=== PATIENT | female | born 2000 | race Caucasian/White ===

== ENCOUNTER 2020-08-26 13:22 | Emergency (ER) | payer OTHER, SELFPAY ==
--- NOTE | 2020-08-26 13:27 | ED.UPPEXIN ---
HPI - Extremity Injury (Upper) General Chief Complaint: Wound/Laceration Stated Complaint: CUT THUMB ON LEFT HAND AT WORK Time Seen by Provider: 08/26/20 13:25 Source: patient Mode of arrival: Ambulatory Limitations: no limitations History of Present Illness HPI narrative: 19-year-old female nonsmoker with noncontributory medical history presents with a work related injury to her left thumb. She was using a knife and chopping vegetables when it slipped and caused a laceration, she states that there is tissue loss and it is bleeding heavily. She has not had a tetanus shot in over 5 years. She denies numbness, tingling or weakness. She is otherwise well and free of complaint MD complaint: injury to: left Onset (ago): minute(s) Other Extremity Injury: Left: fingers Other injuries: none Handedness: right Place: work Severity: mild Relieving factors: none Exacerbating factors: none Context: laceration Associated symptoms: denies other symptoms Treatments prior to arrival: bandage Related Data Allergies Allergy/AdvReac Type Severity Reaction Status Date / Time No Known Drug Allergies Allergy Verified 08/26/20 13:28 Review of Systems Constitutional Constitutional: Denies chills, Denies fatigue, Denies fever(s), Denies frequent falls, Denies lethargy and Denies weakness Eyes Eyes: Denies change in vision, Denies eye discharge, Denies irritation and Denies loss of vision ENT Ears, Nose, Mouth, and Throat: Denies change in voice, Denies dizziness, Denies neck pain, Denies sore throat and Denies throat swelling Cardiovascular Cardiovascular: Denies chest pain, Denies irregular heart rhythm, Denies lightheadedness, Denies palpitations, Denies dyspnea, Denies dyspnea on exertion and Denies orthopnea Respiratory Respiratory: Denies cough, Denies dyspnea, Denies dyspnea on exertion and Denies wheezing Gastrointestinal Gastrointestinal: Denies abdominal pain, Denies change in bowel habits, Denies diarrhea, Denies nausea and Denies vomiting Musculoskeletal Musculoskeletal: Denies neck pain and Denies numbness Integumentary/Breasts Skin/Breast: Denies pruritus, Denies erythema, Denies rash and Reports wounds Neurologic Neurologic: Denies behavioral changes, Denies confusion, Denies dizziness, Denies frequent falls, Denies loss of vision, Denies numbness and Denies weakness Psychiatric Psychiatric: Denies anxiety, Denies behavioral changes, Denies confusion, Denies depression, Denies homicidal ideation and Denies suicidal ideation Endocrine Endocrine: Denies fatigue, Denies flushing and Denies palpitations Hematologic/Lymphatic Hematologic/Lymphatic: Denies easy bruising Allergic/Immunologic Allergic/Immunologic: Denies urticaria, Denies throat swelling and Denies wheezing Patient History Social History Smoking Status: Current every day smoker alcohol intake frequency: 0-2 drinks per day Substance Use Type: does not use Exam Narrative Exam Narrative: GEN: AOx3 and in mild distress EYES: Pupils are equal, round, and reactive to light and accommodation. Extraoccular muscles are intact bilaterally. There is no subconjunctival hemorrhage or exudate. CHEST: Lungs are clear to auscultation bilaterally and free of wheezes, rales, or rhonchi. Heart rate is regular rhythm, there are no murmurs, clicks, rubs, or gallops. There is no chest wall tenderness. ABD: Abdomen is soft and nontender. There is no guarding or rebound. Bowel sounds are normal in all 4 quadrants. There is no mass or organomegaly. EXT: Avulsion laceration to the tip of the left thumb with a small amount of nailbed involvement and loss of nail, heavy bleeding noted Full painless ROM of all extremities with no loss of sensation or strength. SKIN: Warm, pink, and dry. No erythema or rash Initial Vital Signs Initial Vital Signs: Vital Signs Temperature 97.5 F L 08/26/20 13:28 Pulse Rate 116 H 08/26/20 13:28 Respiratory Rate 14 08/26/20 13:28 Blood Pressure 142/84 H 08/26/20 13:28 Pulse Oximetry 98 08/26/20 13:28 Procedures Laceration Repair Laceration 1: Site: upper extremity Side (If applicable): left Size (cm): 1.0 Description: clean Depth: simple, single layer Local Anesthetic: lidocaine 1% and bupivacaine 0.5% Pre-repair: wound explored Skin layer closed with: nylon Size (cm): 4-0 Number of sutures: 1 Technique: simple, interrupted Course Orders Ordered: Discontinued Medications Diphtheria/Tetanus/Acell Pertussis (Tet,Diph,Pertuss(Acell),Vac/Pf 0.5 Ml Syringe) 0.5 ml IM .ONCE ONE Stop: 08/26/20 13:28 Last Admin: 08/26/20 13:36 Dose: 0.5 ml Documented by: QUINN Lidocaine/Sodium Bicarbonate (Lido 1%/Sod Bicarb 8.4% (10ml) 10 Ml Syringe) 10 ml INJ NOW ONE Stop: 08/26/20 13:28 Last Admin: 08/26/20 13:35 Dose: 10 ml Documented by: QUINN Vital Signs Vital signs: Vital Signs - 8 hr 08/26/20 13:28 Temperature 97.5 F L Pulse Rate 116 H Respiratory Rate 14 Blood Pressure 142/84 H Pulse Oximetry 98 Discharge Plan Departure Patient Disposition: Home Clinical Impression: Laceration Instructions: DI for Laceration Repair Activity Restrictions/Additional Instructions: *You have been diagnosed with [left thumb laceration with avulsion] *What to do: *Please continue to take your regular medications as directed. [ ] New medication prescriptions sent to your pharmacy: [ ] [ ] New medication written as a paper prescription [ x] No new medications given Please keep the wound clean and dry to the best of your ability. Please monitor for signs of infection such as redness to the skin or increasing pain. Have the sutures removed by your doctor in about 7 days. If you are unable to get into your doctor, we would be happy to remove the sutures in that same timeframe. *If you do not have a primary care provider please contact the [facility] Resource line at [phone]. They will ask some questions about your medical history and help get you set up with a doctor in the community. *Return to Emergency Department if you should have any new, worsening or concerning symptoms, such as [fever greater than 101 F, shaking chills, worsening pain, persistent vomiting or other bothersome symptoms] Referrals: Danilo Gamez MD [Primary Care Provider] -
[2020-08-26 13:28] VITALS: BP 142/84; PULSE 116; RESP 14; TEMP 36.4; O2SAT 98; BMI 18.8
[2020-08-26] MEDS: LIDO 1%/SOD BICARB 8.4% (10ML) 10 ML SYRINGE INJ (13:35)
[2020-08-26] MEDS: TET,DIPH,PERTUSS(ACELL),VAC/PF 0.5 ML SYRINGE IM (13:36)
== END 2020-08-26 14:12 | disposition home or self-care (01) ==
PROVIDERS: Emergency Provider Emergency Medicine; PCP Family Medicine
DX: S61.012A Laceration without foreign body of left thumb without damage to nail, initial encounter (principal); W26.0XXA Contact with knife, initial encounter; Z23 Encounter for immunization; Y99.0 Civilian activity done for income or pay
CPT/HCPCS: 12001; 90471; 99283; 90715

== ENCOUNTER 2021-06-24 04:48 | Emergency (ER) | payer OTHER, SELFPAY ==
--- NOTE | 2021-06-24 04:50 | DI.RAD.S_ITS ---
PROCEDURE: XR ANKLE RT MIN 3V INDICATIONS: lateral mal pain after rolling ankle TECHNIQUE: 3 views of the ankle were acquired. COMPARISON: None. FINDINGS: Bones: No fractures or dislocations. Ankle mortise is normally aligned. No suspicious bony lesions. Soft tissues: No tibiotalar joint effusion. Achilles tendon appears normal. IMPRESSION: No acute osseous abnormalities. No significant discrepancy with the linux admin engineer radiology preliminary report. Dictated by: Gio Miles M.D. on 06/24/2021 at 7:48 Approved by: Gio Miles M.D. on 06/24/2021 at 7:49
[2021-06-24 04:56] VITALS: BP 132/71; PULSE 91; RESP 18; TEMP 37; O2SAT 98; BMI 19.7
--- NOTE | 2021-06-24 05:19 | ED.LOWEXIN ---
HPI - Extremity Injury (Lower) General Chief Complaint: Extremity Injury, Lower Stated Complaint: rolled rt ankle Time Seen by Provider: 06/24/21 04:50 Source: patient Mode of arrival: Wheelchair History of Present Illness HPI Narrative: 20-year-old female here for evaluation of a right ankle injury. Last evening patient states she rolled her right ankle when she was walking to her car. Since that time she has had increasing discomfort specifically with walking. No other injuries from the event. Related Data Allergies Allergy/AdvReac Type Severity Reaction Status Date / Time No Known Drug Allergies Allergy Verified 06/24/21 04:56 Review of Systems Musculoskeletal Musculoskeletal: Reports system reviewed and no additional complaints, except as documented Integumentary/Breasts Skin/Breast: Reports system reviewed and no additional complaints, except as documented Neurologic Neurologic: Reports system reviewed and no additional complaints, except as documented Hematologic/Lymphatic On Anticoagulants: No Patient History Medical History Healthy adult Social History Smoking Status: Current every day smoker Smoking Status: Current every day smoker alcohol intake frequency: 0-2 drinks per day Substance Use Type: does not use Exam Initial Vital Signs Initial Vital Signs: Vital Signs Temperature 98.6 F 06/24/21 04:56 Pulse Rate 91 H 06/24/21 04:56 Respiratory Rate 18 06/24/21 04:56 Blood Pressure 132/71 06/24/21 04:56 Pulse Oximetry 98 06/24/21 04:56 Const General: cooperative and comfortable Cardio Pulses: dorsalis pedis present on the right Skin General: no rashes or lesions noted Neuro Sensory Exam: no sensory deficits noted Extrem Other: No proximal fibula tenderness. No Achilles tenderness. Does have tenderness along the mediolateral malleolus of the right ankle. No loose from the joint tenderness. Psych Appearance: grossly normal and well kempt Procedures Orthopedic Splinting/Casting Injury #1: Side: right Lower Extremity Injury Location: ankle Lower Extremity Immobilizer: Luca wrap Post splinting neuro exam: no change Post splinting vascular exam: no change Placed by: Provider Course Orders Ordered: ED Orders 06/24/21 04:50 XR ankle RT min 3V Stat Discontinued Medications Chlorpromazine HCl 25 mg/ (Sodium Chloride) 501 mls @ 1,002 mls/hr IV NOW ONE Stop: 06/24/21 04:57 Last Admin: 06/24/21 04:58 Dose: Not Given Documented by: MADAY Vital Signs Vital signs: Vital Signs - 8 hr 06/24/21 04:56 Temperature 98.6 F Pulse Rate 91 H Respiratory Rate 18 Blood Pressure 132/71 Pulse Oximetry 98 MDM - Extremity Injury (Lower) Imaging Data Extremity x-ray #1: Radiologist's Impression: No acute fracture or dislocation MDM Narrative Medical decision making narrative: Patient is neurovascularly intact. No fractures noted on the x-rays. An Luca bandage was placed for her comfort. She was given return precautions and follow-up instructions. She declined the offer for crutches. She expressed understanding and agreement. Discharge Plan Departure Patient Disposition: Home Clinical Impression: Ankle sprain and strain Instructions: DI for Ankle Sprain, How To Perform RICE (Rest, Ice, Compress, Elevate), How to Apply an Elastic Wrap on Ankle Activity Restrictions/Additional Instructions: There were no fractures noted on the x-rays that you can walk 1 your right leg as tolerated. I do recommend that you try to keep it elevated and ice over the area as much as possible over the next couple days. Return to the emergency department for new or worsening symptoms like we discussed. Referrals: Danilo Gamez MD [Primary Care Provider] -
== END 2021-06-24 05:49 | disposition home or self-care (01) ==
PROVIDERS: Emergency Provider Emergency Medicine; PCP Family Medicine
DX: S93.401A Sprain of unspecified ligament of right ankle, initial encounter (principal); X50.1XXA Overexertion from prolonged static or awkward postures, initial encounter
CPT/HCPCS: 73610; 99283